=== PATIENT | male | born 1960 | race Caucasian/White ===

== ENCOUNTER → 2017-12-29 08:24 | Outpatient (CLI) | payer BC, SELFPAY ==
[2017-12-29 10:57] LABS: Cholesterol 204 mg/dL (200); High Density Lipoprotein 45 mg/dL; PSA,Total - Annual Screen 2.12 ng/mL (0.00-4.00); Triglycerides 154 mg/dL; Very Low Density Lipoprotein 31 mg/dL (5-40)
== END ==
PROVIDERS: Family Provider Family Medicine; PCP Family Medicine; Visit Provider Family Medicine
DX: E78.00 Pure hypercholesterolemia, unspecified (principal); Z12.5 Encounter for screening for malignant neoplasm of prostate
CPT/HCPCS: 36415; 80061; 84153; G0103

== ENCOUNTER → 2019-04-09 08:06 | Outpatient (CLI) | payer BC, SELFPAY ==
[2019-04-09 10:38] LABS: AST(SGOT) 19 U/L (15-37); Alanine Aminotransfer ALT/SGPT 25 U/L (16-61); Albumin, Serum 3.6 g/dL (3.2-5.0); Alkaline Phosphatase 58 U/L (45-117); Anion Gap 6 (5-15); BUN 19 mg/dL (7-18); BUN/Creat Ratio 16.4 RATIO (10-20); Calcium,Total 8.6 mg/dL (8.5-10.1); Chloride 106 mmol/L (98-107); Cholesterol 211 mg/dL (200); Creatinine, Serum 1.16 mg/dL (0.70-1.30); EST Glomerular Filtration Rate 69 mL/min (>60); Est Glom Filt Rate - Afr Amer 83 mL/min (>60); Globulin 3.5 g/dL (2.2-4.2); Glucose 89 mg/dL (74-106); High Density Lipoprotein 48 mg/dL; PSA,Total - Annual Screen 2.71 ng/mL (0.00-4.00); Protein, Total 7.1 g/dL (6.4-8.2); Sodium Level 143 mmol/L (136-145); Triglycerides 225 mg/dL; Very Low Density Lipoprotein 45 mg/dL (5-40)
== END ==
PROVIDERS: Family Provider Family Medicine; PCP Family Medicine; Referring Provider Family Medicine; Visit Provider Nurse Practitioner Family
DX: Z00.00 Encounter for general adult medical examination without abnormal findings (principal); E78.00 Pure hypercholesterolemia, unspecified; Z12.5 Encounter for screening for malignant neoplasm of prostate
CPT/HCPCS: 36415; 80053; 80061; 84153; G0103

== ENCOUNTER → 2021-01-15 09:06 | Outpatient (CLI) | payer BC, SELFPAY ==
[2021-01-15 10:21] LABS: Absolute Lymphocyte Count 1.64 X10^3/uL (0.83-4.51); Absolute Neutrophil Count 3.6 X10^3/uL (2.0-7.7); Basophil# 0.03 X10^3/uL; Basophil% 0.5 % (0-1); Eosinophil# 0.12 X10^3/uL; Eosinophils% 2.1 % (0-5); Hematocrit 48.1 % (40-54); Hemoglobin 15.4 g/dL (13.0-16.5); Lymphocyte # 1.64 X10^3/ul (0.83-4.51); Mean Corpuscular Hgb 30.2 pg (27.0-32.0); Mean Corpuscular Volume 94.3 fL (80-94); Mean Platelet Vol. 9.4 fl (6.2-12.0); Monocyte# 0.42 X10^3/uL; Monocyte% 7.2 % (0-10); NRBC Flagged by Analyzer 0 % (0-5); Neutrophil # 3.62 X10^3/uL (2.7-7.7); Neutrophil % 61.9 % (47-70); Platelet Count 294 K/mm3 (150-450); RBC Distribution Width CV 12.8 % (11.6-14.6); RBC Distribution Width SD 44.6 fl (35.1-43.9); White Blood Count 5.9 K/mm3 (4.4-11.0)
[2021-01-15 11:03] LABS: AST(SGOT) 16 U/L (15-37); Alanine Aminotransfer ALT/SGPT 27 U/L (16-61); Albumin, Serum 3.5 g/dL (3.2-5.0); Alkaline Phosphatase 69 U/L (45-117); Anion Gap 5 (5-15); BUN 16 mg/dL (7-18); BUN/Creat Ratio 13.9 RATIO (10-20); Calcium,Total 8.3 mg/dL (8.5-10.1); Chloride 106 mmol/L (98-107); Cholesterol 239 mg/dL (200); Creatinine, Serum 1.15 mg/dL (0.70-1.30); EST Glomerular Filtration Rate 69 mL/min (>60); Est Glom Filt Rate - Afr Amer 84 mL/min (>60); Globulin 3.6 g/dL (2.2-4.2); Glucose 90 mg/dL (74-106); High Density Lipoprotein 49 mg/dL; PSA,Total - Annual Screen 3.36 ng/mL (0.00-4.00); Potassium 3.8 mmol/L (3.5-5.1); Protein, Total 7.1 g/dL (6.4-8.2); Sodium Level 141 mmol/L (136-145); Triglycerides 186 mg/dL; Very Low Density Lipoprotein 37 mg/dL (5-40)
== END ==
PROVIDERS: PCP Family Medicine; Referring Provider Family Medicine; Visit Provider Family Medicine
DX: Z00.00 Encounter for general adult medical examination without abnormal findings (principal); Z80.42 Family history of malignant neoplasm of prostate
CPT/HCPCS: 36415; 80053; 80061; 84153; 85025; G0103

== ENCOUNTER → 2022-03-16 | Outpatient (CLI) | payer BC, SELFPAY ==
[2022-03-16 12:19] LABS: Absolute Lymphocyte Count 1.55 X10^3/uL (0.83-4.51); Absolute Neutrophil Count 3.9 X10^3/uL (2.0-7.7); Basophil# 0.02 X10^3/uL; Basophil% 0.3 % (0-1); Eosinophil# 0.07 X10^3/uL; Eosinophils% 1.2 % (0-5); Hematocrit 49.2 % (40-54); Hemoglobin 16.1 g/dL (13.0-16.5); Lymphocyte # 1.55 X10^3/ul (0.83-4.51); Lymphocyte % 25.7 % (19-41); Mean Corp Hgb Conc 32.7 g/dL (32-36); Mean Corpuscular Hgb 30.7 pg (27.0-32.0); Mean Corpuscular Volume 93.9 fL (80-94); Mean Platelet Vol. 9.6 fl (6.2-12.0); Monocyte# 0.45 X10^3/uL; Monocyte% 7.5 % (0-10); NRBC Flagged by Analyzer 0 % (0-5); Neutrophil # 3.91 X10^3/uL (2.7-7.7); Platelet Count 321 K/mm3 (150-450); RBC Distribution Width CV 12.8 % (11.6-14.6); RBC Distribution Width SD 44.2 fl (35.1-43.9); Red Blood Count 5.24 M/mm3 (4.6-6.2)
[2022-03-16 12:42] LABS: ALB/GLOB Ratio 0.9 RATIO (0.9-2.4); AST(SGOT) 20 U/L (15-37); Alanine Aminotransfer ALT/SGPT 32 U/L (16-61); Albumin, Serum 3.6 g/dL (3.2-5.0); Alkaline Phosphatase 64 U/L (45-117); Anion Gap 8 (5-15); BUN 20 mg/dL (7-18); BUN/Creat Ratio 18.2 RATIO (10-20); Calcium,Total 8.8 mg/dL (8.5-10.1); Chloride 106 mmol/L (98-107); Cholesterol 214 mg/dL (200); EST Glomerular Filtration Rate 72 mL/min (>60); Est Glom Filt Rate - Afr Amer 88 mL/min (>60); Globulin 3.8 g/dL (2.2-4.2); Glucose 103 mg/dL (74-106); High Density Lipoprotein 54 mg/dL; PSA,Total - Annual Screen 4.65 ng/mL (0.00-4.00); Potassium 3.8 mmol/L (3.5-5.1); Protein, Total 7.4 g/dL (6.4-8.2); Sodium Level 140 mmol/L (136-145); Triglycerides 242 mg/dL; Very Low Density Lipoprotein 48 mg/dL (5-40)
== END | disposition home or self-care (01) ==
LOC: MFPLAB 10:03
PROVIDERS: PCP Family Medicine; Referring Provider Family Medicine; Visit Provider Family Medicine
DX: Z00.00 Encounter for general adult medical examination without abnormal findings (principal); Z13.1 Encounter for screening for diabetes mellitus; E78.00 Pure hypercholesterolemia, unspecified; Z12.5 Encounter for screening for malignant neoplasm of prostate
CPT/HCPCS: 36415; 80053; 80061; 84153; 85025; G0103

== ENCOUNTER → 2022-04-29 | Outpatient (CLI) | payer BC, SELFPAY ==
[2022-05-03 18:26] LABS: PSA, Free 0.47 ng/mL; PSA, Free % 12.8 % (.)
== END | disposition home or self-care (01) ==
LOC: MFPLAB 11:18
PROVIDERS: PCP Family Medicine; Referring Provider Family Medicine; Visit Provider Family Medicine
DX: R97.20 Elevated prostate specific antigen [PSA] (principal)
CPT/HCPCS: 36415; 84153; 84154

== ENCOUNTER → 2022-10-18 | Outpatient (CLI) | payer BC, SELFPAY ==
--- NOTE | 2022-10-18 08:55 | RAD_ITS ---
STUDY: X-RAY - LEFT WRIST REASON FOR EXAM: Male, 62 years old. Left wrist pain. TECHNIQUE: 4 view(s) of the wrist were obtained. COMPARISON: None. FINDINGS: Osteopenia. Normal visualized distal radius and ulna. Normal radiocarpal articulation. Normal distal radioulnar articulation. Cystic change in the waist of the navicular. Mild arthrosis of the radial carpal row. Moderate arthrosis of the first CMC joint. Normal second through fifth carpometacarpal articulations. Normal visualized metacarpal bones. The soft tissue structures are unremarkable. RAD/Wrist min 3 Views IMPRESSION: Osteopenia with osteoarthritic changes and cystic changes in the scaphoid. No acute osseous abnormality. Electronically Signed: Eulogio Napier, at 9:40 EDT ,
== END | disposition home or self-care (01) ==
LOC: MTRAD 08:42
PROVIDERS: PCP Family Medicine; Referring Provider Family Medicine; Visit Provider Family Medicine
DX: M25.532 Pain in left wrist (principal)
CPT/HCPCS: 73110

== ENCOUNTER → 2023-06-07 | Outpatient (CLI) | payer BC, SELFPAY ==
[2023-06-07 12:21] LABS: Hematocrit 52.7 % (40-54); Hemoglobin 16.6 g/dL (13.0-16.5); Mean Corp Hgb Conc 31.5 g/dL (32-36); Mean Corpuscular Hgb 29.9 pg (27.0-32.0); Mean Corpuscular Volume 94.8 fL (80-94); Mean Platelet Vol. 9.2 fl (6.2-12.0); Platelet Count 310 K/mm3 (150-450); RBC Distribution Width CV 12.5 % (11.6-14.6); RBC Distribution Width SD 44.1 fl (35.1-43.9); Red Blood Count 5.56 M/mm3 (4.6-6.2); White Blood Count 6.1 K/mm3 (4.4-11.0)
[2023-06-07 13:19] LABS: AST(SGOT) 16 U/L (15-37); Alanine Aminotransfer ALT/SGPT 23 U/L (16-61); Albumin, Serum 3.7 g/dL (3.2-5.0); Alkaline Phosphatase 64 U/L (45-117); Anion Gap 3 (5-15); BUN 19 mg/dL (7-18); BUN/Creat Ratio 16.4 RATIO (10-20); Chloride 108 mmol/L (98-107); Cholesterol 202 mg/dL (200); Creatinine, Serum 1.16 mg/dL (0.70-1.30); EST Glomerular Filtration Rate 68 mL/min (>60); Est Glom Filt Rate - Afr Amer 82 mL/min (>60); Globulin 3.7 g/dL (2.2-4.2); Glucose 99 mg/dL (74-106); High Density Lipoprotein 54 mg/dL; PSA,Total - Annual Screen 4.94 ng/mL (0.00-4.00); Protein, Total 7.4 g/dL (6.4-8.2); Sodium Level 140 mmol/L (136-145); Thyroid Stim Hormone (TSH) 2.34 uIU/mL (0.358-3.74); Triglycerides 207 mg/dL; Very Low Density Lipoprotein 41 mg/dL (5-40)
[2023-06-07 13:42] LABS: Hemoglobin A1c 5.7 % (3.8-5.6)
== END | disposition home or self-care (01) ==
LOC: MFPLAB 10:34
PROVIDERS: PCP Family Medicine; Visit Provider Family Medicine
DX: Z00.00 Encounter for general adult medical examination without abnormal findings (principal); E78.00 Pure hypercholesterolemia, unspecified; Z13.0 Encounter for screening for diseases of the blood and blood-forming organs and certain disorders involving the immune mechanism; R97.20 Elevated prostate specific antigen [PSA]
CPT/HCPCS: 36415; 80053; 80061; 83036; 84153; 84443; 85027; G0103

== ENCOUNTER → 2023-09-12 | Outpatient (CLI) | payer BC, SELFPAY ==
--- OUTSIDE RECORDS SUMMARY | 2023-09-12 17:10 | XMS RPT_ITS | CCD ---
Author Name Unknown Address [address] [place] [address] Organization [facility] Allergies Allergy Classification Reported Allergen(s) Allergy Type Date of Onset Reaction(s) Facility (1 source) Seasonal allergy; Translations: [SEASONAL ALLERGIES] Propensity to adverse reactions (disorder) 4 AOF [facility] Repository Results Test Name Value Interpretation Reference Range Facil ity Encounters Encounter Date Encounter Type Care Provider Facility Start: 07-03-2018 End: 07-09-2018 [facility] Family History No Family History Records Found Advance Directives No Advanced Directives Records Found Additional Source Comments (unrecognized sect ion and content) No Status Records Found INFORMATION SOURCE (unrecogn ized section and content) FOR RECORDS PERTAINING TO PATIENTS WHO ARE OR HAVE BEEN ENROLLED IN A CHEMICAL DEPENDENCY/SUBSTANCEABUSE PROGRAM, SOME INFORMATION MAY BE OMITTED. This clinical summary was aggregated from multiple sources. Caution should be exercised in using it in the provision of clinical care. This summary normalizes information from multiple sources, and as a consequence, information in this document may materially change the coding, format and clinical context of patient data. In addition, data may be omitted in some cases. CLINICAL DECISIONS SHOULD BE BASED ON THE PRIMARY CLINICAL RECORDS. [employer] provides no warranty or guarantee of the accuracy or completeness of information in this document.
[2023-09-13 12:09] LABS: PSA, Free 0.55 ng/mL; PSA, Free % 13.6 % (.)
== END | disposition home or self-care (01) ==
LOC: MTLAB 08:21
PROVIDERS: PCP Family Medicine; Referring Provider Urology; Visit Provider Urology
DX: R97.20 Elevated prostate specific antigen [PSA] (principal)
CPT/HCPCS: 36415; 84153; 84154

== ENCOUNTER → 2023-10-06 | Outpatient (CLI) | payer BC, SELFPAY ==
--- NOTE | 2023-10-06 11:02 | MRI_ITS ---
ACR Level 3 findings have been noted. An addendum which confirms receipt of the report will follow. STUDY: MR PELVIS WITH T WITHOUT CONTRAST REASON FOR EXAM: Male, 63 years old. ELEVATED PSA TECHNIQUE: Standardized fat and water weighted pulse sequences were obtained with prostate protocol including small dzoty-gn-sjhz T2 and all 3 orthogonal planes, pre-and post contrast administration, with diffusion imaging. IV 20ml clariscan was administered for the contrast portion of the examination. COMPARISON: None. FINDINGS: Prostate measures 4.5 x 4.6 x 3.8 cm (41ml) Transition zone: Heterogeneous T2 signal without discrete lesion. No focal diffusion restriction. Peripheral zone: No heterogeneous T2 signal with focal irregular 1.2 x 0.9 cm T2 hypointense focus in the right inferior body, axial T2 (series 9 image 19) with associated focal hypointense ADC (series 601 image 18) and increased signal on diffusion (series 6 image 119), and without abnormal enhancement, PI-RADS 4 . No other discrete lesion. No capsular bulge. Retroprostatic angles is preserved. Unremarkable seminal vesicles No adenopathy is seen in the imaged pelvis. Bladder is decompressed, normal in appearance. Bowel is unremarkable. Normal marrow signal within the imaged osseous structures. MRI/Pelvis W/WO Contrast IMPRESSION: Large prostate with focal suspicious 1.2 cm right mid to inferior peripheral zone body lesion, PI-RADS 4. Consider tissue sampling for histopathologic diagnosis. No MR evidence of local extraprostatic extension of disease or pelvic metastasis. Electronically Signed: Leo Grewal MD at 17:25 EDT ,
[2023-10-06 11:30] LABS: CREATININE FINGERSTICK < 1.0 mg/dL (0.70-1.30); EGFR FINGERSTICK > 60.0000 mL/min (>60)
== END | disposition home or self-care (01) ==
PROVIDERS: PCP Family Medicine; Referring Provider Urology; Visit Provider Urology
DX: R97.20 Elevated prostate specific antigen [PSA] (principal)
CPT/HCPCS: 72197; A9575

== ENCOUNTER → 2023-10-23 | Outpatient (CLI) | payer BC, SELFPAY ==
--- NOTE | 2023-10-23 | IMM_PTH ---
PATIENT: PATRICK DRIVER LOC: [facility] U#:[id number] AGE/SX: 63/M ROOM: RE10/23/[address]: Dr. Hebr Aguilar MD : 1960 BED: DIS: 10/23/2023 SPEC #: [id number] RECD: 10/25/23 11:19 STATUS: NED REQ #: [id number] ERLINDA: 10/23/23 00:[address]: Herb Aguilar DEPT: IMMUNOHISTOCHEMISTRY RECD BY: Chago Lu ENTERED: 10/25/23 11:21 SP TYPE: IMMUNO OTHR DR: Lulu Lorenzo DO Tissues: D - PROSTATE LEFT F - PROSTATE LEFT Procedures: 34BE12 (add) P40 (add) P40 (initial) PHYSICIAN & INSTITUTION [place] [id number] SPECIMEN INFORMATION: Tissue Source: D- Prostate, left apex, F- Prostate, left base Clinical Info: Elevated PSA Specimen Number: [id number] D,F CPT code: 05658 METHODOLOGY: Deparaffinized sections of prefer/formalin-fixed tissue or PAP/DQ stained slides are incubated with monoclonal/polyclonal antibodies/oligonucleotide probes. Localization is made via biotin free immunoperoxidase method. Appropriate controls are performed and reacted as expected. Results on target cell population are indicated in the following table: RESULTS: ANTIBODY / CLONE RESULT Block D P40 (BC28) positive 34BE12 (34BE12) positive Block F P40 (BC28) positive 34BE12 (34BE12) positive These tests were developed and their performance characteristics determined by [facility]. They may not have been cleared or approved by the U.S. Food and Drug Administration. The FDA has determined that such clearance or approval is not necessary. The above immunohistochemical/dualISH markers are ordered and reviewed by the Pathologist. INTERPRETATION: D. Prostate, left apex, biopsy: Focal high-grade prostatic intraepithelial neoplasia (HGPIN). F. Prostate, left base, biopsy: Focal high-grade prostatic intraepithelial neoplasia (HGPIN). NETTA/ 10/26/2023
--- NOTE | 2023-10-23 | PROSBIL_PTH ---
PATIENT: PATRICK DRIVER LOC: [facility] U#:[id number] AGE/SX: 63/M ROOM: RE10/23/[address]: Dr. Herb Aguilar MD : 1960 BED: DIS: 10/23/2023 SPEC #: [id number] RECD: 10/24/23 10:53 STATUS: NED REQ #: [id number] ERLINDA: 10/23/23 00:[address]: Herb Aguilar DEPT: SURGICAL PATHOLOGY RECD BY: Roland Funez ENTERED: 10/24/23 10:53 SP TYPE: PROST BX MIRACLE DR: Lulu Lorenzo DO Tissues: A - PROSTATE RIGHT B - PROSTATE RIGHT C - PROSTATE RIGHT D - PROSTATE LEFT E - PROSTATE LEFT F - PROSTATE LEFT Procedures: PROSTATE BX HEADER OPERATION: Prostate biopsy PRE-OP DIAGNOSIS: Elevated PSA TISSUE SUBMITTED: A - Right apex, B - Right mid, C - Right base, D - Left apex, E - Left mid, F - Left base MICROSCOPIC DIAGNOSIS A. Right prostate, apex, core biopsy: Prostatic adenocarcinoma. [place] grade: 3+3=6 Number of cores involved: 2/2 Proportion of tissue involved: ~70 % Perineural invasion: Present, focal Greatest tumor length: 0.8 cm B. Right prostate, mid, core biopsy: Prostatic adenocarcinoma. [place] grade: 3+4=7 Number of cores involved: 2/2 Proportion of tissue involved: ~90 % Perineural invasion: Not identified. Greatest tumor length: 1.0 cm C. Right prostate, base, core biopsy: Prostatic adenocarcinoma. [place] grade: 3+3=6 Number of cores involved: 2/2 Proportion of tissue involved: 80 % Perineural invasion: Not identified. Greatest tumor length: 1.1 cm Chronic inflammation. D. Left prostate, apex, core biopsy: Focal high-grade prostatic intraepithelial neoplasia (HGPIN). See comment. E. Left prostate, mid, core biopsy: Prostatic tissue, negative for malignancy. F. Left prostate, base, core biopsy: Focal high-grade prostatic intraepithelial neoplasia (HGPIN). See comment. NETTA/mr 10/25/2023 COMMENT D&F. Immunohistochemistry ([id number]) supports the above diagnosis. MICROSCOPIC DESCRIPTION Slides are reviewed. GROSS DESCRIPTION A - Received is one container designated prostate, right apex. The specimen consists of two elongated fragments of light ma-white soft tissue each measuring 1.0 cm in length and 0.1 cm in diameter. The specimen is totally submitted in one cassette. B - Received is one container designated prostate, right mid. The specimen consists of two elongated fragments of light ma-white soft tissue each measuring 1.2 cm in length and 0.1 cm in diameter. The specimen is totally submitted in one cassette. C - Received is one container designated prostate, right base. The specimen consists of two elongated fragments of light ma-white soft tissue each measuring 1.5 cm in length and 0.1 cm in diameter. The specimen is totally submitted in one cassette. D - Received is one container designated prostate, left apex. The specimen consists of two elongated fragments of light ma-white soft tissue each measuring 1.0 cm in length and 0.1 cm in diameter. The specimen is totally submitted in one cassette. E - Received is one container designated prostate, left mid. The specimen consists of two elongated fragments of light ma-white soft tissue each measuring 0.8 cm in length and 0.1 cm in diameter. The specimen is totally submitted in one cassette. F - Received is one container designated prostate, left base. The specimen consists of two elongated fragments of light ma-white soft tissue each measuring 1.0 cm in length and 0.1 cm in diameter. The specimen is totally submitted in one cassette. Leeann 10/24/23 TC:0 [facility]: [id number] [phone]
== END | disposition home or self-care (01) ==
LOC: LABSPEC 16:00
PROVIDERS: PCP Family Medicine; Referring Provider Urology; Visit Provider Urology
DX: R97.20 Elevated prostate specific antigen [PSA] (principal)
CPT/HCPCS: 88305; 88341; 88342; G0416

== ENCOUNTER → 2023-11-02 | Outpatient (CLI) | payer BC, SELFPAY ==
--- NOTE | 2023-11-02 07:41 | NM_ITS ---
INDICATION: MALIGNANT NEOPLASM OF PROSTATE EXAMINATION: NUCLEAR MEDICINE BONE SCAN - NM Bone Imaging Whole Body TECHNIQUE: NM Bone whole body bone scan. Radiopharmaceutical Type, Dose and Route: 27.1 mCi of Tc99m MDP, IV administration. Imagin hour delayed whole body imaging in the anterior and posterior projection. COMPARISON/CORRELATED STUDIES: No relevant prior comparison study available FINDINGS: BONES: Questionable faint subtle area of increased uptake in the posterior left 11th rib. Uptake otherwise unremarkable. No other focal abnormal uptake is seen. SOFT TISSUES: Unremarkable. GENITOURINARY UPTAKE: Prompt symmetric renal uptake. Urinary bladder partially filled with radiopharmaceutical. NM/Bone Scan Whole Body IMPRESSION: Questionable small subtle focal uptake in the posterior left 11th rib. Metastatic disease is doubtful. Otherwise unremarkable exam. Electronically Signed: Chucky Nguyen MD at 12:21 EDT ,
== END | disposition home or self-care (01) ==
PROVIDERS: PCP Family Medicine; Referring Provider Urology; Visit Provider Urology
DX: C61 Malignant neoplasm of prostate (principal)
CPT/HCPCS: 78306; A9503

== ENCOUNTER → 2023-11-16 | Outpatient (CLI) | payer BC, SELFPAY ==
--- NOTE | 2023-11-16 11:00 | RAD_ITS ---
STUDY: X-RAY - UNILATERAL RIBS ( LEFT ) WITH CHEST REASON FOR EXAM: Male, 63 years old. ABNORMAL FINDINGS ON OTHER IMAGING TESTS TECHNIQUE - RIBS: 5 view(s) of the ribs. TECHNIQUE - CHEST: Right 1 view frontal projection COMPARISON: October 11, 2013 FINDINGS - RIBS: Normal visualized ribs without a demonstrated fracture. FINDINGS - CHEST: The lungs are clear and expanded. There is no demonstrated pleural abnormality. Normal size heart. Normal mediastinum and byron. Normal visualized pulmonary arteries. Normal visualized aortic arch and descending thoracic aorta. Normal visualized thoracic spine. Normal visualized ribs, clavicles, and shoulders. There is no demonstrated abnormality of the visualized soft tissue structures of the upper abdomen. RAD/Ribs Uni Min 3V w/PA Chest IMPRESSION: RIBS: Normal x-ray examination of the ribs. CHEST: Normal x-ray examination of the chest. Electronically Signed: Phong Mayo MD at 18:14 EDT ,
== END | disposition home or self-care (01) ==
LOC: MTRAD 10:53
PROVIDERS: PCP Family Medicine; Referring Provider Urology; Visit Provider Urology
DX: R93.7 Abnormal findings on diagnostic imaging of other parts of musculoskeletal system (principal)
CPT/HCPCS: 71101

== ENCOUNTER 2023-11-24 10:52 | Day surgery (SDC) | payer BC, SELFPAY ==
[2023-11-16 12:25] LABS: Hemoglobin 15.4 g/dL (13.0-16.5); Mean Corp Hgb Conc 32.1 g/dL (32-36); Mean Corpuscular Hgb 30.4 pg (27.0-32.0); Mean Corpuscular Volume 94.9 fL (80-94); Mean Platelet Vol. 8.8 fl (6.2-12.0); Platelet Count 340 K/mm3 (150-450); RBC Distribution Width CV 12.5 % (11.6-14.6); RBC Distribution Width SD 43.2 fl (35.1-43.9); Red Blood Count 5.06 M/mm3 (4.6-6.2); White Blood Count 6.3 K/mm3 (4.4-11.0)
--- NOTE | 2023-11-16 13:53 | EKG12_ITS ---
Test Reason : PRE OP Blood Pressure : / mmHG Vent. Rate : 088 BPM Atrial Rate : 088 BPM P-R Int : 134 ms QRS Dur : 088 ms QT Int : 346 ms P-R-T Axes : 050 081 020 degrees QTc Int : 418 ms Normal sinus rhythm Normal ECG Confirmed by Jameel Hernandez ([id number]), communications editor BRYAN CURRY ([id number]) on 11/20/2023 10:07:00 AM Referred By: Herb Aguilar Confirmed By:Jameel Hernandez
[2023-11-24] VITALS (10 sets, daily range): BP systolic 125–140; BP diastolic 68–89; PULSE 73–91; RESP 16–18; TEMP 35.6–37.5; O2SAT 88–98; BMI 31.5
[2023-11-24] MEDS: Lactated Ringers 1,000 ML 15 ML IV (11:32)
[2023-11-24] MEDS: Cefazolin 2 GM in 0.9% Normal Saline (100mL Bag) 100 ML IV (12:45)
--- NOTE | 2023-11-24 13:00 | PROST_PTH ---
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 Herb Aguilar MD : 1960 BED: DIS: 11/25/2023 SPEC #: [id number] RECD: 11/24/23 18:07 STATUS: NED RECameron #: [id number] ERLINDA: 11/24/23 13:[address]: Herb Aguilar DEPT: SURGICAL PATHOLOGY RECD BY: Марина Shanks ENTERED: 11/28/23 09:40 SP TYPE: PROSTATE OTHR DR: Mariluz Maradiaga MD Tissues: A - Lymph node of pelvis, NOS B - Lymph node of pelvis, NOS C - Prostate, NOS Procedures: Surgery Specimen Level V Surgery Specimen Level HEADER OPERATION: Laparoscopic robotic radical prostatectomy PRE-OP DIAGNOSIS: Malignant neoplasm of prostate, elevated prostate specific antigen TISSUE SUBMITTED: A- Left pelvic lymph node, B- Right pelvic lymph node, C- Prostate MICROSCOPIC DIAGNOSIS A. Left pelvic lymph node, regional lymphadenectomy: One out of one lymph node negative for carcinoma. B. Right pelvic lymph node, regional lymphadenectomy: One out of one lymph node negative for carcinoma. C. Prostate, radical prostatectomy: Adenocarcinoma. See cancer template below. AM/mr 12/01/2023 COMMENT PROSTATE CANCER (RADICAL) SUMMARY: Procedure: Radical Prostatectomy Prostate Size: 3.5 x 3.2 x 3.0cm Histologic Type: Adenocarcinoma Histologic Grade: 3+3 (6) Percent of Pattern 4: 0 Percent of Pattern 5: 0 Intraductal Carcinoma: Not identified Tumor Quantitation: Tumor size: 2.2 x 2.0 x 1.6cm Extraprostatic Extension: Not identified Urinary Bladder Neck Invasion: Present Seminal Vesicle Invasion: Not identified Lymphvascular Invasion: Not identified Perineural Invasion: Present, frequent Margins: Location of positive margin: Right lateral and right posterior lateral, and focal apical margin. NOTE: The right lateral region examined is disrupted. Regional Lymph Nodes: See specimens A&B Number of lymph nodes involved by carcinoma: 0 Total number of lymph nodes examined: 2 Treatment Effect: Unknown Additional Pathologic Findings: High-grade pin, benign nodular hyperplasia and chronic inflammation PATHOLOGIC STAGE: T2 N0 Mx The above summary is in compliance with [employer] [place] [employer] (CAP) Cancer Protocols Checklist and [place] [employer] Committee on Cancer (AJCC), Staging Manual, 8th Ed. MICROSCOPIC DESCRIPTION Slides are reviewed. GROSS DESCRIPTION A. Received in fixative is one container labeled with the patient's name and designated Left pelvic lymph node. The specimen consists of an irregular fragment of ma-yellow fibrofatty tissue measuring 2.0 x 1.2 x 0.2cm. The specimen is submitted in its entirety in one cassette. B. Received in fixative is one container labeled with the patient's name and designated Right pelvic lymph node. The specimen consists of an irregular fragment of ma-yellow fibrofatty tissue measuring 1.6 x 1.5 x 0.2cm. The specimen is submitted in its entirety in one cassette. C. Received in fixative is one container labeled with the patient's name and designated prostate. The specimen consists of a prostate with attached seminal vesicles and vas deferens. The prostate measures 3.5 cm transversely, 3.0cm anterior posteriorly and 3.2cm cranial-caudally. The specimen weighs 38.2gm. The specimen is differently inked as follows: right half- blue, left half- green, anterior surface- red, entire posterior surface- black. The specimen is serially sectioned from apex of gland to base of gland. No distinct mass lesions are identified. Business Continuity Planning Director sections are submitted as follows: 1- Distal urethral shave margin, 2- proximal urethral (bladder shave margin), 3-right and left seminal vesicles, 4-most basal section, 5-8- apex, 9-15- mid portion of gland, 16-19- basal portion of gland. AM/mr 11/29/2023 TC: CPT:0 [id number]
[2023-11-24] MEDS: Bupivacaine Mpf 0.5% 30 ML VIAL (16:20)
--- NOTE | 2023-11-24 16:27 | DCINST_ITS ---
Discharge Instructions Diet Discharge Diet: Light diet - advance as tolerated and Soft diet Activity Discharge Activity: May Not Drive (while taking narcotic pain medications.) Lifting Restrictions: No lifting for 6 weeks Dressing / Incision Call your doctor if you observe: Fever of 101 or Higher Suture Line Care: Avoid Pulling/Pushing and Avoid Pinching/Bending Cleanse incision/area with: Keep Dressing Clean & Dry Catheter: Cameron to leg bag and Cameron to large bag Drain: [place] Follow Up Care Please Follow Up With: Herb Aguilar MD When: Call [phone] for an appointment Test Results: Test results from this visit will be discussed in further detail at your follow- up appointment, if applicable. Discharge Plan Admission Primary Reason for Your Visit: Radical prostatectomy Attending Provider: Herb Aguilar Primary Care Provider: Mariluz Maradiaga Instructions Print Language: Welsh Discharge Orders/Prescriptions Prescriptions: New ciprofloxacin HCl [Cipro] 500 mg tablet 500 mg PO BID Qty: 20 0RF docusate sodium [Colace] 100 mg capsule 100 mg PO BID Qty: 20 0RF oxycodone 5 mg tablet 5 mg PO Q6H PRN (Reason: pain) 7 Days Qty: 14 0RF Continued multivitamin [Daily Multi-Vitamin] Tablet 1 tab PO DAILY ascorbic acid (vitamin C) [C-500] 500 mg tablet 1 g PO DAILY cholecalciferol (vitamin D3) [Vitamin D3] 25 mcg (1,000 unit) capsule 25 mcg PO DAILY Probiotic Acidophilus 250 million cell capsule 500 mmu cells PO DAILY cetirizine [All Day Allergy (cetirizine)] 10 mg tablet 10 mg PO DAILY Referrals / Follow Up: Herb Aguilar MD [Med Staff - Active Staff] - Lulu Lorenzo DO [Med Staff - Advertising Assistant] - Disposition Disposition (needs filled in before D/C Order can be placed): Home, Self Care
--- NOTE | 2023-11-24 16:27 | PCM.HP.STD ---
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 prostatectomy for prostate cancer PFSH Medical History Rib lesion Wears glasses Cancer Arthritis Prostate disease Injury of head and neck Non-smoker Home Medications ?Medication ?Instructions ?Recorded ?Last Taken ?Type Lactobacillus acidophilus 250 500 mmu cells PO DAILY 11/09/23 11/22/23 History million cell capsule (Probiotic Acidophilus) ascorbic acid (vitamin C) 500 mg 1 g PO DAILY 11/09/23 11/22/23 History tablet (C-500) cetirizine 10 mg tablet (All Day 10 mg PO DAILY 11/09/23 11/22/23 History Allergy (cetirizine)) cholecalciferol (vitamin D3) 25 25 mcg PO DAILY 11/09/23 11/22/23 History mcg (1,000 unit) capsule (Vitamin D3) multivitamin (Daily Multi-Vitamin 1 tab PO DAILY 11/09/23 11/22/23 History tablet) ciprofloxacin HCl 500 mg tablet 500 mg PO BID #20 tabs 11/24/23 Unknown Rx (Cipro) docusate sodium 100 mg capsule 100 mg PO BID #20 caps 11/24/23 Unknown Rx (Colace) oxycodone 5 mg tablet 5 mg PO Q6H PRN pain 7 days #14 11/24/23 Unknown Rx tabs Allergy/AdvReac Type Severity Reaction Status Date / Time No Known Allergies Allergy Verified 11/24/23 11:15 Surgical History (Updated 11/09/23 @ 08:22 by Roro Corbett) Hx of colonoscopy Hx of vasectomy Social History Smoking Status: Never smoker Vital Signs Vital Signs Vital Signs: 11/24/23 11:18 11/24/23 11:18 Temperature 96.1 F L Temperature Source Temporal Pulse Rate 78 Respiratory Rate 18 Respiratory Pattern Normal Blood Pressure 137/84 H Blood Pressure Mean 101 Blood Pressure Source Monitor Blood Pressure Position Semi-Fowlers Blood Pressure Location Left Arm Pulse Ox 97 Oxygen Delivery Method Room Air Weight Weight: 102.6 kg Body Mass Index (BMI) 31.5 Results Lab / Micro Data 11/16/23 10:58
--- NOTE | 2023-11-24 16:28 | PCM.OPRPT ---
Report of Operation Date of Procedure: 11/24/23 Pre-Operative Diagnosis: Prostate cancer Post-Operative Diagnosis: The same prostate cancer Surgery/Procedure Performed:: Laparoscopic robotic assisted radical prostatectomy with bilateral nerve sparing, and pelvic lymph node dissection. Description of Surgical Findings:: Patient was taken back to the operating room at this with induction of anesthesia he was placed in dorsolithotomy position with legs in stirrups he was padded and prepped secured to the table we did a tilt test the patient was secured to the table he then underwent general anesthesia the abdomen was shaved prepped and draped in usual sterile fashion identified the midline made a small incision right above the umbilicus probe down to the fascia put a Veress needle into the peritoneal cavity filled the peritoneal cavity CO2 gas I then placed my ports which was a camera arm right arm left arm extra left arm air seal port and suction arm. The robot was docked the patient was placed in Trendelenburg and we proceeded with the dissection I first released the colon completely to allow it retract out of the pelvis I then followed the traced the right vas deferens down to the pelvis and then the left vas deferens was identified and then went posterior to the vas deferens and identified Denonvilliers' fascia I then dissected between the rectum and the diabetes fascia all the way to the apex of the prostate I then used a fourth arm to retract the prostate up and then proceeded with the dissection underneath the prostate using blunt dissection to free up the fascia from underneath the prostate laterally I went laterally is on the right side is much as possible I went worked my way back identified the neurovascular bundle laterally and the and the right side the prostate and this was freed off the prostate and then worked my way back I then dissected out the vas deferens and seminal vesicles on the right side I then came through and identified the pedicle the pedicle was taken with bipolar cautery really close to the prostate and then freed up the right side of the prostate all the way to the apex releasing the neurovascular bundles and the prostate off the fascia laterally all the way to the apex I then went back to the left side on the left to the prostate released the prostate left side underneath and then this was all coming from the underside approach avoiding the space of Retzius therefore there is no top-down dissection during the surgery and then came all the way to the left side freed up the neurovascular bundles on the left side and was able to peel these off the lateral aspect of the prostate easily a few perforators were then cauterized and then came back to the pedicle the pedicle was taken with electrocautery I then identified what was the bladder neck to the prostate I then dissected the around the circumferentially around the bladder neck until I freed up the prostate from the bladder neck and then came across the catheter the catheter was pulled back and then I freed up the prostate more off the the bladder neck and then off the prostate from the bladder I then went anterior to the prostate working my way up to the apex circumferentially dissected all the way apex all the way and then transected the urethra I made sure that there was no glandular tissue left on the urethra and then the prostate was free we then did anastomosis starting at the bladder neck I did place a stay stitch in the bladder neck to avoid losing the bladder neck. I then resected anastomosis from the urethra to the bladder neck starting at the urethra is 12:00 and then working all the way to the 6:00 with a double-armed suture using a strata fix stitch to the asses muscles was completed the catheter was then advanced into the bladder we then flushed the bladder there was no leakage from the anastomosis I then pulled out of the pelvis we put Floseal in the base of the prostate had been removed I did another leak test and there was no leak I then made peritoneal windows and dissected out few lymph nodes sampled samples from the left and right pelvic lymph nodes these were taken out using the vessel sealer after the lymph nodes were removed completely in both the left and right side is best the lymph nodes look negative only took a few samples did not think a an extensive lymph node dissection would be necessary a few lymph nodes were taken out from each side and sent off we then checked again the anastomosis was good anastomosis really good nerve-sparing we did a Retzius sparing approach today and we extracted the prostate from the umbilicus closed the umbilical site patient acetic was reversed taken back to PACU in good condition and be kept overnight for observation Surgeon: Herb Aguilar Type of Anesthesia: General Drains: sequeira 18 fr red devil tip Estimated Blood Loss (mL): 200 Admit VTE Documentation VTE Present on Admission: No VTE Mechan Device Prophylaxis: SCD's VTE Pharm Prophylaxis ordered?: No
[2023-11-24] MEDS: Lactated Ringers 1,000 ML 125 ML IV (17:10)
[2023-11-24] MEDS: Ketorolac 15 MG/ML Vial IV ×2 (17:12→23:23)
[2023-11-24] MEDS: oxyCODONE 5 MG Tablet PO (19:19)
[2023-11-24] MEDS: Ciprofloxacin 400 MG/200 ML BAG 200 MG IV (22:11)
[2023-11-24] MEDS: Docusate Sodium 100 MG Capsule 200 MG PO (22:14)
[2023-11-25] MEDS: Lactated Ringers 1,000 ML 125 ML IV (00:39)
[2023-11-25 02:08] VITALS: BP 114/65; PULSE 73; RESP 16; TEMP 36.9; O2SAT 96
[2023-11-25] MEDS: Ketorolac 15 MG/ML Vial IV (05:33)
[2023-11-25 06:08] VITALS: BP 115/58; PULSE 60; RESP 16; TEMP 36.6; O2SAT 97
[2023-11-25 08:00] VITALS: BP 118/70; PULSE 64; RESP 14; TEMP 36.4; O2SAT 98
--- NOTE | 2023-11-25 08:19 | PCM.PN.GU ---
Subjective Subjective 63-year-old male status post robotic radical prostatectomy doing well urine is nice and clear no events overnight he will go home today with a Cameron catheter to leg bag and large bag nurses will teach him how to do leg bag and large bag and catheter care and I will see him in 2 weeks for to remove the Cameron catheter. Objective Data Objective Data Vital Signs: Vital Signs Temp Pulse Resp BP Pulse Ox O2 Del Method O2 Flow Rate 98 F 60 16 115/58 L 97 Room Air 2 11/25/23 06:08 11/25/23 06:08 11/25/23 06:08 11/25/23 06:08 11/25/23 06:08 11/25/23 06:08 11/25/23 02:08 Oxygen Flow Rate (L/min) 2 Oxygen Delivery Method Room Air Weight: 102.6 kg Body Mass Index (BMI) 31.5 Intake & Output: Intake and Output for Last 24 Hours 11/23/23 11/24/23 11/25/23 23:59 23:59 23:59 Intake Total 1310 / 1310 935.42 / 935.42 Output Total 425 / 675 600 / 600 Balance 885 / 635 335.42 / 335.42 Lab / Micro Data 11/16/23 10:58
[2023-11-25] MEDS: Docusate Sodium 100 MG Capsule 200 MG PO (08:58)
[2023-11-25] MEDS: Loratadine 10 MG Tablet PO (08:58)
[2023-11-25] MEDS: Ciprofloxacin 400 MG/200 ML BAG 200 MG IV (08:59)
== END 2023-11-25 13:04 | disposition home or self-care (01) ==
LOC: SDC 10:53 → AC 10:53 → MS3 13:41
PROVIDERS: Anesthesiology; PCP Family Medicine; Referring Provider Urology; Visit Provider Urology
PROC: 0VT04ZZ Resection of Prostate, Percutaneous Endoscopic Approach (ICD-10-PCS; CPT 55866; principal; 2023-11-24 12:40)
DX: C61 Malignant neoplasm of prostate (principal)
CPT/HCPCS: 55866; 00865; 36415; 85027; 86850; 86900; 86901; 88307; 88309; 93005; J7120; J0744; J2405

== ENCOUNTER → 2024-01-03 | Outpatient (CLI) | payer BC, SELFPAY ==
--- NOTE | 2024-01-03 17:02 | RAD_ITS ---
INDICATION: PAIN EXAMINATION/TECHNIQUE: X-RAY - LEFT XR Shoulder Min 2 Views COMPARISON: No previous relevant examinations for comparison. FINDINGS: SOFT TISSUES: No soft tissue swelling or gas. No radiopaque foreign body. BONES/JOINTS: 1. No acute fracture or subluxation.. Normal alignment. Joint spaces maintained however degenerative changes at the glenohumeral joint with significant osteophyte formation from the humeral head and the glenoid fossa.. No sclerotic or destructive changes observed. 2. There is normal glenohumeral motion. There is normal alignment of the acromioclavicular joint. 3. The clavicle, acromion, scapula and RIGHT rib cage have normal appearance. RAD/Shoulder min 2 Views IMPRESSION: 1. No fracture or dislocation. 2. Osteoarthritic changes involving the glenohumeral joint with osteophyte formation. Electronically Signed: Michele Fernandez MD at 23:20 EDT ,
== END | disposition home or self-care (01) ==
PROVIDERS: PCP Family Medicine; Referring Provider Family Medicine; Visit Provider Family Medicine
DX: M25.512 Pain in left shoulder (principal)
CPT/HCPCS: 73030

== ENCOUNTER → 2024-01-18 | Outpatient (CLI) | payer BC, SELFPAY ==
[2024-01-18 18:28] LABS: PSA,Total- Diagnostic < 0.01 ng/mL (0.0-4.0)
== END | disposition home or self-care (01) ==
PROVIDERS: PCP Family Medicine; Referring Provider Urology; Visit Provider Urology
DX: C61 Malignant neoplasm of prostate (principal)
CPT/HCPCS: 36415; 84153

== ENCOUNTER → 2024-04-19 | Outpatient (CLI) | payer BC, SELFPAY ==
--- OUTSIDE RECORDS SUMMARY | 2024-04-19 12:33 | XMS RPT_ITS | CCD ---
Author Organization [employer] [facility] Allergies Allergy Classification Reported Allergen(s) Allergy Type Date of Onset Reaction(s) Facility (1 source) Seasonal allergy; Translations: [SEASONAL ALLERGIES] Propensity to adverse reactions (disorder) 4 [facility] Repository Results Test Name Value Interpretation Reference Range Facil itkameron CNOVon 07-03-2018 CNOV Office Visit (UCWSTR) PATRICK DRIVER ([id number]) 1960 MDate Time Provider Department07/03/18 9:30 AM DARRELL ROLAND [facility] During your visit today, we recorded the following information about you: Temperature Pulse Respiration Blood pressure 97 degrees 78/minute 16/minute 112/68 Weight 111.1 kgDarrell Roland MD 07/03/2018 9:56 AM SignedPatient presents with:Sinus Problem: sinus pressure and drainage, started in right eye withtenderness x 2 weeks, [facility] given amoxicillinHPI:Feeling sick for almost 2 weeks. Symptoms began with right eye irritation andhas been worse for the last week. Ear pressure and sore throat are improvedsince starting antibiotic.Positive symptoms: Cough, Sore throat, Earache, Sinus pressure, NasalCongestion, Rhinorrhea, Post nasal drainage, fatigued, eye discharge, eyeredness, denisha feeling in eyeNegative symptoms: Fever, Chills, vision changeOTC: [facility]oxicillin [facility], reports strep test was notworking.MEDICATIONS:Guerita choi Outpatient Prescriptions:amoxicilli n (AMOXIL) 875 mg tablet Take 875 mg by mouth twice daily.No current facility-administered medications for this visit.ALLERGIES:ALLERGIE SAllergen Reactions- Seasonal Allergies Other: See Comments Nasal congestion, headache, itchingVITALS:BP 112/68 Pulse 78 Temp 36.1 ?C (97 ?F) (Tympanic) Resp 16 Wt 111.1kg (245 lb)PHYSICAL EXAM: GEN: mildly ill appearing HEENT: PERRL, EOMI, R>L conjunctiva injected with mucoid discharge, boggypalpebral conjunctiva Ears: canals clear, TMs without erythema, bulge, or effusion Sinuses: non-tender frontal sinus, non-tender maxillary sinuses Throat: moist mucous membranes, mild erythema, no exudate Neck: supple, no thyromegaly, no lymphadenopathy HEART: regular rate and rhythm, no murmurs LUNGS: clear to auscultation, no wheezes or crackles, no increased WOB;occasional coughASSESSMENT/PLAN:1. Acute conjunctivitis of both eyes, unspecified acute conjunctivitis type -ICD9: 372.00, ICD10: H10.33Probable sinusitis which is improving with amoxicillin. Unclear ifconjunctivitis flared worse for the last week is viral or atypical bacterial.Add - POLYMYXIN B SULFATE 10,000 UNIT-TRIMETHOPRIM 1 MG/ML EYE DROPSFollow up with ENT if eye symptoms persist.Darrell Roland, MDReferring Provider: SELF [[id number]]Allergies As of Date: 07/03/2018 Noted Allergy ReactionSEASONAL ALLERGIES 08/21/2013 14 - Other: See Comments Comments: Nasal congestion, headache, itchingDate Reviewed: 07/03/2018Reviewed by: Shira Varma Ma - Fully AssessedReason for Visit: Sinus Problem [99] Cmt: sinus pressure and drainage, started in right eye with tenderness x 2 weeks, [facility] given amoxicillinPrimary Visit Diagnosis:Acute conjunctivitis of both eyes, unspecified acute conjunctivitis type [H10.33]Order(s):trimeth oprim-polymyxin eye drops (POLYTRIM) ophthalmic solutionUse 2 Drops in both eyes every 6 hours for 7 days.Disp: 1 BottleRfl: 0Prescriptions as of 07/03/2018 Sig: AMOXICILLIN 875 MG TABLET Take 875 mg by mouth twice da* POLYMYXIN B SULFATE 10,000 UN* Use 2 Drops in both eyes ever*Problem List As Of Date: 07/03/2018(None)Prescrip tions ordered this encounter Disp Refills Start End POLYMYXIN B SULFATE 10,000 UNIT-TRIM* 1 Clay* 0 07/03/2018 07/10/2018 Route: BOTH EYES Sig: Use 2 Drops in both eyes every 6 hours for 7 days.Medications Discontinued During This Encounter HYDROcodone-homatropine 5-1.5 mg/5 m* 180 * 0 08/21/2013 07/03/2018 Class: Print RX Route: ORAL Sig: Take 5 mL by mouth every 6 hours as needed (cough). Patient not taking: Reported on 07/03/2018 Disc: Course of therapy completed albuterol 90 mcg/actuation aero 1 In* 1 08/21/2013 07/03/2018 Class: Print RX Route: INHALATION Sig: Inhale 2 Puffs as instructed every 4 hours as needed. Patient not taking: Reported on 07/03/2018 Disc: Course of therapy completedEncounter Number: [id number] Status:Closed by DARRELL ROLAND MD on 07/03/18 [facility] PROGRESSon 07-03-2018 Protein mass conc HNO ID: [id number]: Darrell Wellservice: (none)Author Type: PhysicianType: Progress NotesFiled: 07/03/2018 9:56 AMNote Text:Patient presents with:Sinus Problem: sinus pressure and drainage, started in right eye withtenderness x 2 weeks, [facility] given amoxicillinHPI:Feeling sick for almost 2 weeks. Symptoms began with right eye irritationand has been worse for the last week. Ear pressure and sore throat areimproved since starting antibiotic.Positive symptoms: Cough, Sore throat, Earache, Sinus pressure, NasalCongestion, Rhinorrhea, Post nasal drainage, fatigued, eye discharge, eyeredness, denisha feeling in eyeNegative symptoms: Fever, Chills, vision changeOTC: on amoxicillin [facility], reports strep test was notworking.MEDICATIONS:Guerita choi Outpatient Prescriptions:amoxicilli n (AMOXIL) 875 mg tablet Take 875 mg by mouth twice daily.No current facility-administered medications for this visit.ALLERGIES:ALLERGIE SAllergen Reactions- Seasonal Allergies Other: See Comments Nasal congestion, headache, itchingVITALS:BP 112/68 Pulse 78 Temp 36.1 ?C (97 ?F) (Tympanic) Resp 16 Wt111.1 kg (245 lb)PHYSICAL EXAM: GEN: mildly ill appearing HEENT: PERRL, EOMI, R>L conjunctiva injected with mucoid discharge,boggy palpebral conjunctiva Ears: canals clear, TMs without erythema, bulge, or effusion Sinuses: non-tender frontal sinus, non-tender maxillary sinuses Throat: moist mucous membranes, mild erythema, no exudate Neck: supple, no thyromegaly, no lymphadenopathy HEART: regular rate and rhythm, no murmurs LUNGS: clear to auscultation, no wheezes or crackles, no increasedWOB; occasional coughASSESSMENT/PLAN:1. Acute conjunctivitis of both eyes, unspecified acute conjunctivitistype - ICD9: 372.00, ICD10: H10.33Probable sinusitis which is improving with amoxicillin. Unclear ifconjunctivitis flared worse for the last week is viral or atypicalbacterial.Add - POLYMYXIN B SULFATE 10,000 UNIT-TRIMETHOPRIM 1 MG/ML EYE DROPSFollow up with ENT if eye symptoms persist.Darrell Roland MD [facility] Encounters Encounter Date Encounter Type Care Provider Facility Start: 07-03-2018 End: 07-09-2018 Patient encounter procedure [facility] Summary Purpose Family History No Family History Records Found Advance Directives No Advanced Directives Records Found Additional Source Comments (unrecognized sect ion and content) No Status Records Found INFORMATION SOURCE (unrecogn ized section and content) DATE CREATED AUTHOR 07/09/2018 [facility] FOR RECORDS PERTAINING TO PATIENTS WHO ARE [...] BE BASED ON THE PRIMARY CLINICAL RECORDS. [employer] provides no warranty or guarantee of the accuracy or completeness of information in this document.
[2024-04-19 12:49] LABS: Hematocrit 48.1 % (40-54); Mean Corp Hgb Conc 33.3 g/dL (32-36); Mean Corpuscular Hgb 30.5 pg (27.0-32.0); Mean Corpuscular Volume 91.8 fL (80-94); Mean Platelet Vol. 8.8 fl (6.2-12.0); Platelet Count 303 K/mm3 (150-450); RBC Distribution Width CV 12.6 % (11.6-14.6); RBC Distribution Width SD 42.3 fl (35.1-43.9); Red Blood Count 5.24 M/mm3 (4.6-6.2); White Blood Count 5.9 K/mm3 (4.4-11.0)
[2024-04-19 13:36] LABS: AST(SGOT) 16 U/L (15-37); Alanine Aminotransfer ALT/SGPT 22 U/L (16-61); Albumin, Serum 3.6 g/dL (3.2-5.0); Alkaline Phosphatase 64 U/L (45-117); Amylase 67 U/L (25-115); Anion Gap 3 (5-15); BUN 18 mg/dL (7-18); BUN/Creat Ratio 16.7 RATIO (10-20); Calcium,Total 9.2 mg/dL (8.5-10.1); Chloride 108 mmol/L (98-107); Creatinine, Serum 1.08 mg/dL (0.70-1.30); EST Glomerular Filtration Rate 73 mL/min (>60); Est Glom Filt Rate - Afr Amer 89 mL/min (>60); Globulin 3.5 g/dL (2.2-4.2); Glucose 103 mg/dL (74-106); Lipase 49 U/L (13-75); Potassium 4.4 mmol/L (3.5-5.1); Protein, Total 7.1 g/dL (6.4-8.2); Sodium Level 142 mmol/L (136-145)
== END | disposition home or self-care (01) ==
LOC: LAB 12:21
PROVIDERS: PCP Family Medicine; Referring Provider Urology; Visit Provider Urology
DX: C61 Malignant neoplasm of prostate (principal)
CPT/HCPCS: 36415; 80053; 82150; 83690; 84403; 85027

== ENCOUNTER → 2024-05-14 | Outpatient (CLI) | payer BC, SELFPAY ==
[2024-05-14 09:20] LABS: PSA,Total- Diagnostic < 0.01 ng/mL (0.0-4.0)
== END | disposition home or self-care (01) ==
LOC: LAB 08:42
PROVIDERS: PCP Family Medicine; Referring Provider Urology; Visit Provider Urology
DX: C61 Malignant neoplasm of prostate (principal)
CPT/HCPCS: 36415; 84153

== ENCOUNTER → 2024-10-29 | Outpatient (CLI) | payer BC, SELFPAY ==
[2024-10-29 10:52] LABS: PSA,Total- Diagnostic < 0.02 ng/mL (0.00-4.00)
== END | disposition home or self-care (01) ==
LOC: LAB 09:02
PROVIDERS: PCP Family Medicine; Referring Provider Urology; Visit Provider Urology
DX: C61 Malignant neoplasm of prostate (principal)
CPT/HCPCS: 36415; 84153

== ENCOUNTER → 2024-11-19 | Outpatient (CLI) | payer BC, SELFPAY ==
--- NOTE | 2024-11-19 16:43 | RAD_ITS ---
PROCEDURE: RIBS UNIL 2V NO CXR 11/19/2024 REASON FOR EXAM: PAIN TECHNIQUE: Four views of the right ribs COMPARISON: None available FINDINGS: No fracture identified. No evidence of pleural effusion. The right lung as imaged appears clear. Shoulder degenerative changes noted. RAD/Ribs Unil 2V No CXR IMPRESSION: No fracture identified. If symptoms persist, may consider follow-up chest CT a s warranted. Reading Location: [id number]
--- NOTE | 2024-11-19 16:44 | RAD_ITS ---
PROCEDURE: CLAVICLE 11/19/2024 REASON FOR EXAM: PAIN TECHNIQUE: 2 view(s) of right clavicle COMPARISON: None available FINDINGS: RIGHT CLAVICLE: No fracture. The acromioclavicular and coracoclavicular distances appear within limits. [id number] appearing glenohumeral joint osteoarthrosis. RAD/Clavicle IMPRESSION: No fracture. Reading Location: [id number]
--- NOTE | 2024-11-19 16:44 | RAD_ITS ---
PROCEDURE: STERNUM MIN 2 VIEWS 11/19/2024 REASON FOR EXAM: PAIN TECHNIQUE: 3 view(s) of the sternum. Bilateral oblique and 2 lateral, 4 total images FINDINGS: No fracture identified. Right shoulder glenohumeral joint osteoarthrosis. Lower cervical spondylosis/discogenic change. RAD/Sternum min 2 Views IMPRESSION: No fracture identified. Reading Location: [id number]
== END | disposition home or self-care (01) ==
PROVIDERS: PCP Family Medicine; Referring Provider Family Medicine; Visit Provider Family Medicine
DX: R07.9 Chest pain, unspecified (principal); S20.211A Contusion of right front wall of thorax, initial encounter; X58.XXXA Exposure to other specified factors, initial encounter
CPT/HCPCS: 71100; 71120; 73000

== ENCOUNTER → 2025-04-29 | Outpatient (CLI) | payer OTHER, SELFPAY ==
--- OUTSIDE RECORDS SUMMARY | 2025-04-29 10:11 | XMS RPT_ITS | CCD ---
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 Role Phone Ashwini, Chalon Primary Care Unavailable Ashwini, Chalon Attending Unavailable Ashwini, Chalon Referring Unavailable Ashwini, Chalon Primary Care Unavailable Jeff, De Attending Unavailable Jeff, De Referring Unavailable Ashwini, Chalon Primary Care Unavailable Jeff, De Attending Unavailable Jeff, De Referring Unavailable Ashwini, Chalon Primary Care Unavailable Jeff, De Attending Unavailable Jeff, De Referring Unavailable Jeff, De Attending Unavailable Ashwini, Chalon Primary Care Unavailable Jeff, De Referring Unavailable Allergies Allergy Classification Reported Allergen(s) Allergy Type Date of Onset Reaction(s) Facility (1 source) Seasonal allergy; Translations: [SEASONAL ALLERGIES] Propensity to adverse reactions (disorder) 4 [facility] Repository Medications Current Medications Medication Drug Class(es) Dates Sig (Normalized) Sig (Original) ascorbic acid 500 mg oral tablet (1 source) Vitamin C Start: 11-09-2023 take 1 tablet by mouth once daily Ascorbic Acid (Vitamin C) (C-500) 500 mg tablet Active 1 GM PO DAILY November 09, 2023 12:00am cetirizine hydrochloride 10 mg oral tablet (1 source) Histamine-1 Receptor Antagonist Start: 11-09-2023 take 1 tablet by mouth once daily Cetirizine (All Day Allergy (Cetirizine)) 10 mg tablet Active 10 MG PO DAILY November 09, 2023 12:00am cholecalciferol 0.025 mg oral capsule (1 source) Vitamin D Start: 11-09-2023 take 1 capsule by mouth once daily Cholecalciferol (Vitamin D3) (Vitamin D3) 25 mcg (1,000 unit) capsule Active 25 MCG PO DAILY November 09, 2023 12:00am lactobacillus acidophilus 1.5 mg oral capsule (1 source) Start: 11-09-2023 Lactobacillus Acidophilus (Probiotic Acidophilus) 250 million cell capsule Active 500 MMU CELLS PO DAILY November 09, 2023 12:00am Multivitamin (Daily Multi-Vitamin) tablet (1 source) Start: 11-09-2023 take 1 tablet by mouth once daily Multivitamin (Daily Multi-Vitamin) tablet Active 1 TABLET PO DAILY November 09, 2023 12:00am Problems Problem Classification Problem Date Documented Da te Episodic/Chronic Cancer of prostate (1 source) Malignant neoplasm of prostate; Translations: [Malignant neoplasm of prostate] Onset: 11-04-2024 Chronic Nonspecific chest pain (1 source) Chest pain, unspecified; Translations: [Chest pain, unspecified] Onset: 01-02-2025 Episodic Results Test Name Value Interpretation Reference Range Facility Clavicleon 11-19-[address] [facility] Imaging Services [address] [place], [place] [address] Clavicle MR#: [id number] Acct: [id number] Name: PATRICK DRIVER Rep #: [id number] : 1960 M 64 From: Joel Fitzgerald MD PCP: Dr. Mariluz Maradiaga MD Status: REG CLI Study: Clavicle Date of Exam: 11/19/24 Exam# [id number] Ordering Dr: Mariluz Maradiaga MD PROCEDURE: CLAVICLE 11/19/2024 REASON FOR EXAM: PAIN TECHNIQUE: 2 view(s) of right clavicle COMPARISON: None available FINDINGS: RIGHT CLAVICLE: No fracture. The acromioclavicular and coracoclavicular distances appear within limits. Saaxcnea-za-zdkmxi appearing glenohumeral joint osteoarthrosis. RAD/Clavicle IMPRESSION: No fracture. Reading Location: [facility] CC: Dr. Mariluz Maradiaga MD Assistant Account Manager: Signed Normal [facility] Ribs Unil 2V No CXRon 2024 Ribs Unil 2V No CXR [facility] Imaging Services [address], [place] [address] Ribs Unil 2V No CXR MR#: [id number] Acct: [id number] Name: PATRICK DRIVER Rep #: [id number] : 1960 M 64 From: Joel Fitzgerald MD PCP: Dr. Mariluz Maradiaga MD Status: REG CLI Study: Ribs Unil 2V No CXR Date of Exam: 11/19/24 Exam# [id number] Ordering Dr: Mariluz Maradiaga MD PROCEDURE: RIBS UNIL 2V NO CXR 11/19/2024 REASON FOR EXAM: PAIN TECHNIQUE: Four views of the right ribs COMPARISON: None available FINDINGS: No fracture identified. No evidence of pleural effusion. The right lung as imaged appears clear. Shoulder degenerative changes noted. RAD/Ribs Unil 2V No CXR IMPRESSION: No fracture identified. If symptoms persist, may consider follow-up chest CT as warranted. Reading Location: [facility] CC: Dr. Mariluz Maradiaga MD Assistant Account Manager: Signed Normal [facility] Sternum min 2 Viewson 2024 Sternum min [address] [facility] Imaging Services [address] [place], [place] [id number] Sternum min 2 Views MR#: [id number] Acct: [id number] Name: PATRICK DRIVER Rep #: [id number] : 1960 M 64 From: Joel Fitzgerald MD PCP: Dr. Mariluz Maradiaga MD Status: REG CLI Study: Sternum min 2 Views Date of Exam: 11/19/24 Exam# [id number] Ordering Dr: Mariluz Maradiaga MD PROCEDURE: STERNUM MIN 2 VIEWS 11/19/2024 REASON FOR EXAM: PAIN TECHNIQUE: 3 view(s) of the sternum. Bilateral oblique and 2 lateral, 4 total images FINDINGS: No fracture identified. Right shoulder glenohumeral joint osteoarthrosis. Lower cervical spondylosis/discogenic change. RAD/Sternum min 2 Views IMPRESSION: No fracture identified. Reading Location: [id number] CC: Dr. Mariluz Maradiaga MD Assistant Account Manager: Signed Normal [facility] PSA,Total- Diagnosticon - PSA, DIAGNOSTIC < 0.02 Normal 0.00-4.00 [facility] Comment on above: Result Comment: This test was performed using the [employer] tPSA method. Measured values of a patient??sample can vary depending on the testing procedure used. PSA values determined on patient samples by different testing procedures cannot be used interchangeably. If there is a change in PSA assays while monitoring therapy, sequential testing should be performed to confirm baseline values. Performed By: #### L 501.9940 #### [facility] [address] [place], [address] PSA,Total- Diagnosticon 05-03 PSA, DIAGNOSTIC < 0.01 Normal 0.0-4.0 [facility] Comment on above: Result Comment: This test was performed using the TPSA assay method for the [employer] chemistry system. Values obtained with different assay methods cannot be used interchangably. When changing PSA assays in the course of monitoring a patient, additional sequential testing should be carried out to confirm baseline values. Performed By: #### L 501.2400, L100.0500, L500.4050, L501.2450, L509.3000 #### [facility] [address] [place], [address] Amylaseon 04-19-2024 FITO 67 U/L Normal 25-115 [facility] Comment on above: Performed By: #### L 501.2400, L100.0500, L500.4050, L501.2450, L509.3000 #### [facility] [address] [place], [address] CBC-Complete Blood Cnt No Di ffon 04-19-2024 Erythrocyte distribution width (RBC) [Ratio] 12.6 % Normal 11.6-14.6 [facility] Comment on above: Performed By: #### L 501.2400, L100.0500, L500.4050, L501.2450, L509.3000 #### [facility] [address] [place], [address] Hematocrit (Bld) [Volume fraction] 48.1 % Normal 40-54 [facility] Comment on above: Performed By: #### L 501.2400, L100.0500, L500.4050, L501.2450, L509.3000 #### [facility] [address] [place], [address] Hemoglobin (Bld) [Mass/Vol] 16.0 g/dL Normal 13.0-16.5 [facility] Comment on above: Performed By: #### L 501.2400, L100.0500, L500.4050, L501.2450, L509.3000 #### [facility] [address] [place], [address] MCH (RBC) [Entitic mass] 30.5 pg Normal 27.0-32.0 [facility] Comment on above: Performed By: #### L 501.2400, L100.0500, L500.4050, L501.2450, L509.3000 #### [facility] [address] [place], [address] MCHC (RBC) [Mass/Vol] 33.3 g/dL Normal 32-36 [facility] Comment on above: Performed By: #### L 501.2400, L100.0500, L500.4050, L501.2450, L509.3000 #### [facility] [address] [place], [address] MCV (RBC) [Entitic vol] 91.8 fL Normal 80-94 [facility] Comment on above: Performed By: #### L 501.2400, L100.0500, L500.4050, L501.2450, L509.3000 #### [facility] [address] [place], [address] Platelet mean volume (Bld) [Entitic vol] 8.8 fL Normal 6.2-12.0 [facility] Comment on above: Performed By: #### L 501.2400, L100.0500, L500.4050, L501.2450, L509.3000 #### [facility] [address] [place], [address] Platelets (Bld) [#/Vol] 303 10*3/uL Normal 150-450 [facility] Comment on above: Performed By: #### L 501.2400, L100.0500, L500.4050, L501.2450, L509.3000 #### [facility] [address] [place], [address] RBC (Bld) [#/Vol] 5.24 10*6/uL Normal 4.6-6.2 [facility] Comment on above: Performed By: #### L 501.2400, L100.0500, L500.4050, L501.2450, L509.3000 #### [facility] [address] [place], [address] RDW SD 42.3 fl Normal 35.1-43.9 [facility] Comment on above: Performed By: #### L 501.2400, L100.0500, L500.4050, L501.2450, L509.3000 #### [facility] [address] [place], [address] WBC (Bld) [#/Vol] 5.9 10*3/uL Normal 4.4-11.0 [facility] Comment on above: Performed By: #### L 501.2400, L100.0500, L500.4050, L501.2450, L509.3000 #### [facility] [address] [place], [address] Comprehensive Metabolic Prof ilon 04-19-2024 Albumin [Mass/Vol] 3.6 g/dL Normal 3.2-5.0 [facility] Comment on above: Performed By: #### L 501.2400, L100.0500, L500.4050, L501.2450, L509.3000 #### [facility] [address] [place], [address] Albumin/Globulin [Mass ratio] 1.0 {ratio} Normal 0.9-2.4 [facility] Comment on above: Performed By: #### L 501.2400, L100.0500, L500.4050, L501.2450, L509.3000 #### [facility] [address] [place], [address] ALK P 64 U/L Normal 45-117 [facility] Comment on above: Performed By: #### L 501.2400, L100.0500, L500.4050, L501.2450, L509.3000 #### [facility] [address] [place], [address] ALT [Catalytic activity/Vol] 22 U/L Normal 16-61 [facility] Comment on above: Performed By: #### L 501.2400, L100.0500, L500.4050, L501.2450, L509.3000 #### [facility] [address] [place], [address] AST [Catalytic activity/Vol] 16 U/L Normal 15-37 [facility] Comment on above: Performed By: #### L 501.2400, L100.0500, L500.4050, L501.2450, L509.3000 #### [facility] [address] [place], [address] Bilirubin [Mass/Vol] 0.40 mg/dL Normal 0.20-1.00 [facility] Comment on above: Result Comment: For patients on eltrombopag therapy, use of Dimension [place] TBIL is not recommended. Performed By: #### L 501.2400, L100.0500, L500.4050, L501.2450, L509.3000 #### [facility] [address] [place], [address] BUN/CRE 16.7 RATIO Normal 10-20 [facility] Comment on above: Performed By: #### L 501.2400, L100.0500, L500.4050, L501.2450, L509.3000 #### [facility] [address] [place], [address] CA,Total 9.2 mg/dL Normal 8.5-10.1 [facility] Comment on above: Performed By: #### L 501.2400, L100.0500, L500.4050, L501.2450, L509.3000 #### [facility] [address] [place], [address] Chloride [Moles/Vol] 108 mmol/L High 98-107 [facility] Comment on above: Performed By: #### L 501.2400, L100.0500, L500.4050, L501.2450, L509.3000 #### [facility] [address] [place], [address] CO2 [Moles/Vol] 31.0 mmol/L Normal 21.0-32.0 [facility] Comment on above: Performed By: #### L 501.2400, L100.0500, L500.4050, L501.2450, L509.3000 #### [facility] [address] [place], [address] Creatinine [Mass/Vol] 1.08 mg/dL Normal 0.70-1.30 [facility] Comment on above: Result Comment: The validity of the calculated GFR GFRAA in patients over 70 years has not been determined. Clinical correlation is essential. Performed By: #### L 501.2400, L100.0500, L500.4050, L501.2450, L509.3000 #### [facility] [address] [place], [address] EST GFR - AA 89 mL/min Normal >60 [facility] Comment on above: Result Comment: Afri can Danish GFR Calc Performed By: #### L 501.2400, L100.0500, L500.4050, L501.2450, L509.3000 #### [facility] [address] [place], [address] GAP 3 Low 5-15 [facility] Comment on above: Performed By: #### L 501.2400, L100.0500, L500.4050, L501.2450, L509.3000 #### [facility] [address] [place], [address] GFR/1.73 sq M.predicted among non-blacks MDRD (S/P/Bld) [Vol rate/Area] 73 mL/min/{1.73_m2} Normal >60 [facility] Comment on above: Result Comment: Non- GFR Calc Performed By: #### L 501.2400, L100.0500, L500.4050, L501.2450, L509.3000 #### [facility] [address] [place], [address] Globulin (S) [Mass/Vol] 3.5 g/dL Normal 2.2-4.2 [facility] Comment on above: Performed By: #### L 501.2400, L100.0500, L500.4050, L501.2450, L509.3000 #### [facility] [address] [place], [address] Glucose [Mass/Vol] 103 mg/dL Normal 74-106 [facility] Comment on above: Result Comment: Fast ing Glucose result from 100 to 125 mg/dL suggests IMPAIRED HOMEOSTASIS per A.D.A. criteria. Performed By: #### L 501.2400, L100.0500, L500.4050, L501.2450, L509.3000 #### [facility] [address] [place], [address] Potassium [Moles/Vol] 4.4 mmol/L Normal 3.5-5.1 [facility] Comment on above: Performed By: #### L 501.2400, L100.0500, L500.4050, L501.2450, L509.3000 #### [facility] [address] [place], [address] Sodium [Moles/Vol] 142 mmol/L Normal 136-145 [facility] Comment on above: Performed By: #### L 501.2400, L100.0500, L500.4050, L501.2450, L509.3000 #### [facility] [address] [place], [address] T PROT 7.1 g/dL Normal 6.4-8.2 [facility] Comment on above: Performed By: #### L 501.2400, L100.0500, L500.4050, L501.2450, L509.3000 #### [facility] [address] [place], [address] Urea nitrogen [Mass/Vol] 18 mg/dL Normal 7-18 [facility] Comment on above: Performed By: #### L 501.2400, L100.0500, L500.4050, L501.2450, L509.3000 #### [facility] [address] [place], [address] Lipaseon 04-19-2024 Lipase [Catalytic activity/Vol] 49 U/L Normal 13-75 [facility] Comment on above: Result Comment: Pledarby baltazar note: LIPASE revised reference range effective 22. New Lipase methodology. Expected to produce lower values than the previous assay method. NEW Reference Range: 13 - 75 U/L Performed By: #### L 501.2400, L100.0500, L500.4050, L501.2450, L509.3000 #### [facility] [address] [place], [address] Testosterone, Serum Totalon 04-19-2024 Testosterone [Mass/Vol] 486.15 ng/dL Normal [facility] Comment on above: Result Comment: CENT RAL 90% REFERENCE RANGES MALE AGE <50 197.44 - 669.58 ng/dL MALE AGE > or = 50 187.72 - 684.19 ng/dL FEMALE AGE <50 8.38 - 35.01 ng/dL FEMALE AGE > or = 50 <7.00 - 35.92 ng/dL Effective as of 01/26/21 Performed By: #### L 501.2400, L100.0500, L500.4050, L501.2450, L509.3000 #### [facility] [address] [place], [address] PSA,Total- Diagnosticon 12-31 PSA, DIAGNOSTIC < 0.01 Normal 0.0-4.0 [facility] Comment on above: Result Comment: This test was performed using the TPSA assay method for the [employer] chemistry system. Values obtained with different assay methods cannot be used interchangably. When changing PSA assays in the course of monitoring a patient, additional sequential testing should be carried out to confirm baseline values. Performed By: #### L 501.9940 #### [facility] [address] [place], [address] Basophil percentageOrdered B y: Herb Aguilar on 10-06-2023 Basophil percentage < 1.0 mg/dL 0.70-1.30 [facility] No Panel InformationOrdered By: Herb Aguilar on 10-06-2023 Bedside Estimated GFR (eGFR) > 60.0000 mL/min >60 [facility] No Panel InformationOrdered By: Herb Aguilar on 09-12-2023 Percent Free Prostate Specific Ag 0.55 ng/mL N/A [facility] Comment on above: [employer]CL[employer] methodol ogy. Prostate Specific Ag, Ultra-Sensitv 4.040 ng/mL 0.000-4.000 [facility] Comment on above: [employer] ECLIA methodol ogy.According to the [employer], Serum PSAshould decrease and remain at undetectable levels afterradical prostatectomy. The AUA defines biochemicalrecurrence as an initial PSA value 0.200 ng/mL or greaterfollowed by a subsequent confirmatory PSA value 0.200 ng/mLor greater. Values obtained with different assay methods orkits cannot be used interchangeably. Results cannot beinterpreted as absolute evidence of the presence or absenceof malignant disease. Serum or plasma free prostat e specific antigen/total prostate specific antigen ratioOrdered By: Herb Aguilar on 09-12-2023 Free PSA/Total PSA [Mass fraction] 13.6 % . [facility] Comment on above: The table below list s the probability of prostate cancer formen with non-suspicious SUNIL results and total PSA between4 and 10 ng/mL, by patient age (Wanda et al, JACQUELINE 1998,279:1542). % Free PSA 50-64 yr 65-75 yr 0.00-10.00% 56% 55% 10.01-15.00% 24% 35% 15.01-20.00% 17% 23% 20.01-25.00% 10% 20% >25.00% 5% 9%Please note: Wanda et al did not make specific recommendations regarding the use of percent free PSA for any other population of men.Performed at: [facility] [address] [id number] Director: Coleman Rodriguez PhD, Phone: [phone] Basophil percentageOrdered B y: Lulu Bj on 06-07-2023 Bilirubin [Mass/Vol] 0.40 mg/dL 0.20-1.00 [facility] Comment on above: For patients on eltr ombopag therapy, use of Dimension [place] TBIL is not recommended. Chloride [Moles/Vol] 108 mmol/L 98-107 [facility] Cholesterol [Mass/Vol] 202 mg/dL <200 [facility] Comment on above: <200 mg/dL Desirable 200-240 mg/dL Borderline >240 mg/dL High Risk Glucose [Mass/Vol] 99 mg/dL 74-106 [facility] Potassium [Moles/Vol] 4.0 mmol/L 3.5-5.1 [facility] Protein [Mass/Vol] 7.4 g/dL 6.4-8.2 [facility] Sodium [Moles/Vol] 140 mmol/L 136-145 [facility] Triglyceride [Mass/Vol] 207 mg/dL <199 [facility] Comment on above: The drugs N-Acetylcy steine and Metamizole may falsely depress this assay.Serum Triglycerides Reference Interval Normal <150 mg/dL Borderline high 150 - 199 mg/dL High 200 - 499 mg/dL Very High > or = 500 mg/dL WBC (Bld) [#/Vol] 6.1 10*3/uL 4.4-11.0 [facility] Blood erythrocytes count (nu mber/volume)Ordered By: Lulu Lorenzo on 06-07-2023 RBC (Bld) [#/Vol] 5.56 10*6/uL 4.6-6.2 [facility] Blood hemoglobin measurement (mass/volume)Ordered By: Lulu Lorenzo on 06-07-2023 Hemoglobin (Bld) [Mass/Vol] 16.6 g/dL 13.0-16.5 [facility] Blood platelet mean volumeOr dered By: Lulu Lorenzo on 06-07-2023 Platelet mean volume (Bld) [Entitic vol] 9.2 fL 6.2-12.0 [facility] Determination of erythrocyte mean corpuscular volume (MCV)Ordered By: Lulu Lorenzo on 06-07-2023 MCV (RBC) [Entitic vol] 94.8 fL 80-94 [facility] Hematocrit Auto (Bld) [Volum e fraction]Ordered By: Lulu Lorenzo on 06-07-2023 Hematocrit (Bld) [Volume fraction] 52.7 % 40-54 [facility] - Chemistry and C hemistry - challengeOrdered By: Lulu Lorenzo on 06-07-2023 ALP [Catalytic activity/Vol] 64 U/L 45-117 [facility] ALT [Catalytic activity/Vol] 23 U/L 16-61 [facility] CO2 [Moles/Vol] 29.0 mmol/L 21.0-32.0 [facility] Globulin (S) [Mass/Vol] 3.7 g/dL 2.2-4.2 [facility] Urea nitrogen/Creatinine [Mass ratio] 16.4 mg/mg 10-20 [facility] - Hematology and Cell countsOrdered By: Lulu Lorenzo on 06-07-2023 Erythrocyte distribution width (RBC) [Entitic vol] 44.1 fL 35.1-43.9 [facility] Erythrocyte distribution width (RBC) [Ratio] 12.5 % 11.6-14.6 [facility] MCH (RBC) [Entitic mass] 29.9 pg 27.0-32.0 [facility] MCHC Auto (RBC) [Mass/Vol]Or dered By: Lulu Lorenzo on 06-07-2023 MCHC (RBC) [Mass/Vol] 31.5 g/dL 32-36 [facility] No Panel InformationOrdered By: Lulu Lorenzo on 06-07-2023 Estimated GFR (MDRD) Amer 82 mL/min >60 [facility] Comment on above: GFR Calc Estimated GFR (MDRD) Non-Af Amer 68 mL/min >60 [facility] Comment on above: Non- GFR Calc Prostate Specific Antigen Screen 4.94 ng/mL 0.00-4.00 [facility] Comment on above: This test was perfor med using the TPSA assay method for the[facility] system. Values obtained with differentassay methods cannot be used interchangably.When changing PSA assays in the course of monitoring apatient, additional sequential testing should be carriedout to confirm baseline values. Thyroid Stimulating Hormone (TSH) 2.34 uIU/mL 0.358-3.74 [facility] Platelets bldOrdered By: Joseph Lorenzo on 06-07-2023 Platelets (Bld) [#/Vol] 310 10*3/uL 150-450 [facility] Serum or plasma albumin narendra urement (mass/volume)Ordered By: Lulu Lorenzo on 06-07-2023 Albumin [Mass/Vol] 3.7 g/dL 3.2-5.0 [facility] Serum or plasma albumin/glob ulin mass ratioOrdered By: Lulu Lorenzo on 06-07-2023 Albumin/Globulin [Mass ratio] 1.0 {ratio} 0.9-2.4 [facility] Serum or plasma calcium narendra urement (mass/volume)Ordered By: Lulu Lorenzo on 06-07-2023 Calcium [Mass/Vol] 9.0 mg/dL 8.5-10.1 [facility] Serum or plasma cholesterol in HDL measurement (mass/volume)Ordered By: Lulu Lorenzo on 06-07-2023 Cholesterol in HDL [Mass/Vol] 54 mg/dL >40 [facility] Comment on above: The drugs N-Acetylcy steine and Metamizole may falsely depress this assay. Reference Range HDL <40 mg/dL Low HDL Cholesterol HDL >or= 60 mg/dL High HDL Cholesterol Serum or plasma cholesterol in VLDL measurement (mass/volume)Ordered By: Lulu Lorenzo on 06-07-2023 Cholesterol in VLDL [Mass/Vol] 41 mg/dL 5-40 [facility] Serum or plasma creatinine m easurement (mass/volume)Ordered By: Lulu Lorenzo on 06-07-2023 Creatinine [Mass/Vol] 1.16 mg/dL 0.70-1.30 [facility] Comment on above: The validity of the calculated GFR & GFRAA in patients over 70 years has not been determined. Clinical correlation is essential. Serum or plasma low density lipoprotein (LDL) cholesterol measurement (mass/volume)Ordered By: Lulu Lorenzo on 06-07-2023 Cholesterol in LDL [Mass/Vol] 107 mg/dL 0-130 [facility] Serum or plasma urea nitroge n measurement (mass/volume)Ordered By: Lulu Lorenzo on 06-07-2023 Urea nitrogen [Mass/Vol] 19 mg/dL 7-18 [facility] Thin prep Papanicolaou smear with manual screeningOrdered By: Lulu Lorenzo 06-07-2023 Thin prep Papanicolaou smear with manual screening 16 U/L 15-37 [facility] Thin prep Papanicolaou smear with manual screening 3 5-15 [facility] Whole blood hemoglobin A1c/t otal hemoglobin ratio (mass fraction)Ordered By: Lulu Lorenzo on 06-07-2023 HbA1c (Bld) [Mass fraction] 5.7 % 3.8-5.6 [facility] Comment on above: Normal < 5.7 % Predi abetic 5.7 - 6.4 % Diabetic >or= 6.5 % Please note range changes. No Panel Informationon 04-29 Percent Free Prostate Specific Ag 0.47 ng/mL N/A [facility] Work Phone: Comment on above: [employer] ECLIA methodol ogy. Prostate Specific Ag, Ultra-Sensitv 3.680 ng/mL 0.000-4.000 [facility] Work Phone: Comment on above: [employer] ECLIA methodol ogy.According to the [place] [employer], Serum PSAshould decrease and remain at undetectable levels afterradical prostatectomy. The AUA defines biochemicalrecurrence as an initial PSA value 0.200 ng/mL or greaterfollowed by a subsequent confirmatory PSA value 0.200 ng/mLor greater. Values obtained with different assay methods orkits cannot be used interchangeably. Results cannot beinterpreted as absolute evidence of the presence or absenceof malignant disease. Serum or plasma free prostat e specific antigen/total prostate specific antigen ratioon 04-29-2022 Free PSA/Total PSA [Mass fraction] 12.8 % . [facility] Work Phone: Comment on above: The table below list s the probability of prostate cancer formen with non-suspicious SUNIL results and total PSA between4 and 10 ng/mL, by patient age (Wanda et al, JACQUELINE 1998,279:1542). % Free PSA 50-64 yr 65-75 yr 0.00-10.00% 56% 55% 10.01-15.00% 24% 35% 15.01-20.00% 17% 23% 20.01-25.00% 10% 20% >25.00% 5% 9%Please note: Wanda et al did not make specific recommendations regarding the use of percent free PSA for any other population of men.Performed at: [facility] [place], [place] [id number] Director: Coleman Rodriguez PhD, Phone: [phone] Absolute lymphocyte counton 03-16-2022 Lymphocytes Auto (Unsp spec) [#/Vol] 1.55 10*3/uL 0.83-4.51 [facility] Work Phone: Basophil percentageon 2021 Basophils/100 WBC (Bld) 0.3 % 0-1 [facility] Work Phone: Bilirubin [Mass/Vol] 0.60 mg/dL 0.20-1.00 [facility] Work Phone: Comment on above: For patients on eltr ombopag therapy, use of Dimension [place] TBIL is not recommended. Chloride [Moles/Vol] 106 mmol/L 98-107 [facility] Work Phone: Cholesterol [Mass/Vol] 214 mg/dL <200 [facility] Work Phone: Comment on above: <200 mg/dL Desirable 200-240 mg/dL Borderline >240 mg/dL High Risk Eosinophils/100 WBC (Bld) 1.2 % 0-5 [facility] Work Phone: Glucose [Mass/Vol] 103 mg/dL 74-106 [facility] Work Phone: Comment on above: Fasting Glucose resu lt from 100 to 125 mg/dL suggests IMPAIRED HOMEOSTASIS per A.D.A. criteria. Neutrophils (Bld) [#/Vol] 3.9 10*3/uL 2.0-7.7 [facility] Work Phone: Neutrophils/100 WBC (Bld) 65.0 % 47-70 [facility] Work Phone: Potassium [Moles/Vol] 3.8 mmol/L 3.5-5.1 [facility] Work Phone: Protein [Mass/Vol] 7.4 g/dL 6.4-8.2 [facility] Work Phone: Sodium [Moles/Vol] 140 mmol/L 136-145 [facility] Work Phone: Triglyceride [Mass/Vol] 242 mg/dL <199 [facility] Work Phone: Comment on above: The drugs N-Acetylcy steine and Metamizole may falsely depress this assay.Serum Triglycerides Reference Interval Normal <150 mg/dL Borderline high 150 - 199 mg/dL High 200 - 499 mg/dL Very High > or = 500 mg/dL WBC (Bld) [#/Vol] 6.0 10*3/uL 4.4-11.0 [facility] Work Phone: Blood erythrocytes count (nu mber/volume)on 03-16-2022 RBC (Bld) [#/Vol] 5.24 10*6/uL 4.6-6.2 [facility] Work Phone: Blood hemoglobin measurement (mass/volume)on 03-16-2022 Hemoglobin (Bld) [Mass/Vol] 16.1 g/dL 13.0-16.5 [facility] Work Phone: Blood lymphocytes/100 leukoc yteson 03-16-2022 Lymphocytes/100 WBC (Bld) 25.7 % 19-41 [facility] Work Phone: Blood monocytes/100 leukocyt eson 03-16-2022 Monocytes/100 WBC (Bld) 7.5 % 0-10 [facility] Work Phone: [phone] Blood platelet mean volumeon 03-16-2022 Platelet mean volume (Bld) [Entitic vol] 9.6 fL 6.2-12.0 [facility] Work Phone: [phone] Determination of erythrocyte mean corpuscular volume (MCV)on 03-16-2022 MCV (RBC) [Entitic vol] 93.9 fL 80-94 [facility] Work Phone: [phone] Hematocrit Auto (Bld) [Volum e fraction]on 03-16-2022 Hematocrit (Bld) [Volume fraction] 49.2 % 40-54 [facility] Work Phone: Laboratory - Chemistry and C hemistry - challengeon 03-16-2022 ALP [Catalytic activity/Vol] 64 U/L 45-117 [facility] Work Phone: [phone] ALT [Catalytic activity/Vol] 32 U/L 16-61 [facility] Work Phone: [phone] CO2 [Moles/Vol] 26.0 mmol/L 21.0-32.0 [facility] Work Phone: [phone] Globulin (S) [Mass/Vol] 3.8 g/dL 2.2-4.2 [facility] Work Phone: [phone] Urea nitrogen/Creatinine [Mass ratio] 18.2 mg/mg 10-20 [facility] Work Phone: [phone] Laboratory - Hematology and Cell countson 03-16-2022 Erythrocyte distribution width (RBC) [Entitic vol] 44.2 fL 35.1-43.9 [facility] Work Phone: [phone] Erythrocyte distribution width (RBC) [Ratio] 12.8 % 11.6-14.6 [facility] Work Phone: [phone] Immature granulocytes/100 WBC (Bld) 0.300 % 0.0-0.9 [facility] Work Phone: [phone] Comment on above: IG% - Immature Granu locytes (promyelocytes, myelocytes and metamyelocytes) > 1% indicates that a LEFT SHIFT is Present. MCH (RBC) [Entitic mass] 30.7 pg 27.0-32.0 [facility] Work Phone: [phone] Nucleated RBC/100 WBC (Bld) [Ratio] 0 % 0-5 [facility] Work Phone: [phone] MCHC Auto (RBC) [Mass/Vol]on 03-16-2022 MCHC (RBC) [Mass/Vol] 32.7 g/dL 32-36 [facility] Work Phone: [phone] No Panel Informationon 03-16 Estimated GFR (MDRD) Amer 88 mL/min >60 [facility] Work Phone: [phone] Comment on above: GFR Calc Estimated GFR (MDRD) Non-Af Amer 72 mL/min >60 [facility] Work Phone: Comment on above: Non- GFR Calc Prostate Specific Antigen Screen 4.65 ng/mL 0.00-4.00 [facility] Work Phone: Comment on above: This test was perfor med using the TPSA assay method for theCodecademy chemistry system. Values obtained with differentassay methods cannot be used interchangably.When changing PSA assays in the course of monitoring apatient, additional sequential testing should be carriedout to confirm baseline values. Platelets bldon 03-16-2022 Platelets (Bld) [#/Vol] 321 10*3/uL 150-450 [facility] Work Phone: Serum or plasma albumin narendra urement (mass/volume)on 03-16-2022 Albumin [Mass/Vol] 3.6 g/dL 3.2-5.0 [facility] Work Phone: [phone] Serum or plasma albumin/glob ulin mass ratioon 03-16-2022 Albumin/Globulin [Mass ratio] 0.9 {ratio} 0.9-2.4 [facility] Work Phone: Serum or plasma calcium narendra urement (mass/volume)on 03-16-2022 Calcium [Mass/Vol] 8.8 mg/dL 8.5-10.1 [facility] Work Phone: Serum or plasma cholesterol in HDL measurement (mass/volume)on 03-16-2022 Cholesterol in HDL [Mass/Vol] 54 mg/dL >40 [facility] Work Phone: Comment on above: The drugs N-Acetylcy steine and Metamizole may falsely depress this assay. Reference Range HDL <40 mg/dL Low HDL Cholesterol HDL >or= 60 mg/dL High HDL Cholesterol Serum or plasma cholesterol in VLDL measurement (mass/volume)on 03-16-2022 Cholesterol in VLDL [Mass/Vol] 48 mg/dL 5-40 [facility] Work Phone: Serum or plasma creatinine m easurement (mass/volume)on 03-16-2022 Creatinine [Mass/Vol] 1.10 mg/dL 0.70-1.30 [facility] Work Phone: Comment on above: The validity of the calculated GFR & GFRAA in patients over 70 years has not been determined. Clinical correlation is essential. Serum or plasma low density lipoprotein (LDL) cholesterol measurement (mass/volume)on 03-16-2022 Cholesterol in LDL [Mass/Vol] 112 mg/dL 0-130 [facility] Work Phone: Serum or plasma urea nitroge n measurement (mass/volume)on 03-16-2022 Urea nitrogen [Mass/Vol] 20 mg/dL 7-18 [facility] Work Phone: Thin prep Papanicolaou smear with manual screeningon 03-16-2022 Thin prep Papanicolaou smear with manual screening 20 U/L 15-37 [facility] Work Phone: Thin prep Papanicolaou smear with manual screening 8 5-15 [facility] Work Phone: CNOVon 07-03-2018 CNOV Office Visit ([facility]) PATRICK DRIVER ([id number]) 1960 MDate Time Provider Department07/03/18 9:30 AM PHONG ROLAND [facility] During your visit today, we recorded the following information about you: Temperature Pulse Respiration Blood pressure 97 degrees 78/minute 16/minute 112/68 Weight 111.1 kgPhong Roland MD 07/03/2018 9:56 AM SignedPatient presents [...] DROPSFollow up with ENT if eye symptoms persist.Phong Roland, MDReferring Provider: SELF [200]Allergies As of [...] 07/03/2018 Disc: Course of therapy completedEncounter Number: [id number] Status:Closed by PHONG ROLAND MD on 07/03/18 [facility] PROGRESSon 07-03-2018 Protein mass conc HNO ID: [id number]: Phong [facility]: (none)Author Type: PhysicianType: Progress NotesFiled: 07/03/2018 [...] DROPSFollow up with ENT if eye symptoms persist.Phong Roland MD [facility] Encounters Encounter Date Encounter Type Care Provider Facility Start: 11-19-2024 End: 11-19-2024 ambulatory [facility] Facility:[facility] Start: 10-29-2024 End: 10-29-2024 ambulatory Herb Aguilar Facility:[facility] Start: 05-14-2024 End: 05-14-2024 ambulatory [facility] Facility:[facility] Start: 04-19-2024 End: 04-19-2024 [facility] Facility:[facility] Start: 01-18-2024 End: 01-18-2024 ambulatory [facility] Facility:[facility] Start: 11-02-2023 End: 11-02-2023 ambulatory [facility] Work Phone: Start: 11-02-2023 End: 11-02-2023 Patient encounter procedure [facility]-Nuclear Medicine, [facility] Work Phone: Start: 10-23-2023 End: 10-23-2023 ambulatory [facility] Work Phone: Start: 10-23-2023 End: 10-23-2023 Patient encounter procedure [facility]-Laboratory, Specimen Work Phone: Start: 10-06-2023 End: 10-06-2023 ambulatory [facility] Work Phone: Start: 10-06-2023 End: 10-06-2023 Patient encounter procedure [facility]-MRI - [facility] Work Phone: Start: 09-12-2023 End: 09-12-2023 ambulatory [facility] Work Phone: Start: 09-12-2023 End: 09-12-2023 Patient encounter procedure [facility]-Laboratory, [place] Work Phone: Start: 06-07-2023 End: 06-07-2023 ambulatory [facility] Work Phone: Start: 06-07-2023 End: 06-07-2023 [facility] Start: 10-18-2022 End: 10-18-2022 ambulatory [facility] Work Phone: Start: 10-18-2022 End: 10-18-2022 [facility] Start: 04-29-2022 End: 04-29-2022 ambulatory [facility] Work Phone: Start: 04-29-2022 End: 10-28-2022 [facility] Start: 03-16-2022 End: 03-16-2022 ambulatory [facility] Work Phone: Start: 03-16-2022 End: 03-16-2022 [facility] Start: 07-03-2018 End: 07-09-2018 Patient encounter procedure [facility] Procedures Date Procedure Procedure Detail Performing Clinician Start: 11-02-2023 Radionuclide whole b bridget bone study Start: 10-06-2023 MRI of pelvis with contrast Start: 10-18-2022 Plain x-ray of wrist Payers Date Payer Category Payer Self-pay [id number] 2024 Unknown [id number] Unknown [facility] PACKAGE PLAN 0 [id number] Unknown [id number] [id number] [id number] Unknown [id number] [id number] [id number] Unknown [id number] [id number] [id number] Unknown [id number] [id number] [id number] Unknown [id number] 2.16.8 [id number] Social History Date Type Detail [facility] Work Phone: Start: 1960 Sex Assigned At Male W [facility] Start: 11-09-2023 [facility] Evaluation note Note Date & Type Note Facility Evaluation note No assessment information availa ble [facility] Work Phone: Summary Purpose Family History No Family History Records FoundNo Family History Records Found Advance Directives No Advanced Directives Records Found Advance Directive Response Recorded Date/ Time Living Will Yes November 09, 2023 8: 14am Power of [employer] Yes November 09, 2023 8:14am Chief Complaint and Reason for Visit Chief Complaint EORDER- L wrist pain Chief Complaint PSA Chief Complaint PSA ELEVATED PSA Chief Complaint PSA ELEVATED PSA MALIGNANT NEOPLASM PROSTATE Additional Source Comments (unrecognized sect ion and content) No Status Records FoundNo Status Records Found INFORMATION SOURCE (unrecogn ized section and content) DATE CREATED AUTHOR 07/09/[address] [facility] DATE CREATED AUTHOR AUTHOR'S ORGANIZ ATION 01/05/2025 [facility] Goals (unrecognized section and content) Goals may be documented in a n alternate sectionGoals may be documented in an alternate sectionGoals may be documented in an alternate sectionGoals may be documented in an alternate sectionGoals may be documented in an alternate sectionGoals may be documented in an alternate sectionGoals may be documented in an alternate sectionGoals may be documented in an alternate section Care Teams (unrecognized sec tion and content) Team Status: Active Member Role Status Dates Dr. Gabriel Esqueda MD Family Provider Active Lulu Lorenzo DO Primary Care Provider Active Team Status: Inactive Member Role Status Dates Lulu Lorenzo DO Primary Care Provi yordy, Attending Provider, Referring Provider Active Team Status: Inactive Member Role Status Dates Lulu Lorenzo DO Primary Care Provider, Attending Provider Active Team Status: Inactive Member Role Status Dates Lulu Lorenzo DO Primary Care Provider Active Dr. Herb Aguilar MD Attending Provider, Referr ing Provider Active Team Status: Active Member Role Status Dates Dr. Gabriel Esqueda MD Family Provider Active Mariluz Maradiaga MD Primary Care Provider Active Team Status: Inactive Member Role Status Dates Dr. Herb Aguilar MD Attending Provider, Referr ing Provider Active Mariluz Maradiaga MD Primary Care Provider Active FOR RECORDS PERTAINING TO PATIENTS WHO ARE [...] BE BASED ON THE PRIMARY CLINICAL RECORDS. [facility]. provides no warranty or guarantee of the accuracy or completeness of information in this document.
[2025-04-29 10:46] LABS: PSA,Total- Diagnostic < 0.02 ng/mL (0.00-4.00)
== END | disposition home or self-care (01) ==
LOC: LAB 09:20
PROVIDERS: PCP Family Medicine; Referring Provider Urology; Visit Provider Urology
DX: C61 Malignant neoplasm of prostate (principal)
CPT/HCPCS: 36415; 84153